=== PATIENT | male | born 1995 | race Caucasian/White ===

== ENCOUNTER 2018-05-17 09:16 | Emergency (ER) | payer MEDICAID, OTHER ==
[~2018-05-17] VITALS: Ht 172.7 cm; Wt 77.3 kg
[2018-05-17] MEDS ORDERED: fentaNYL/PF 50MCG/1 ML 2ML syringe IV ONE (09:50)
[2018-05-17] MEDS ORDERED: LIDOcaine 1% 30ml preserv. free vial IJ ONE (09:50)
[2018-05-17] MEDS ORDERED: ondansetron/PF 4mg/2ml inj IV ONE (09:50)
[2018-05-17] MEDS ORDERED: etomidate 2mg/ml inj. IV ONE (09:50)
--- NOTE | 2018-05-17 09:56 | NUR ---
EMAN BACON DE RINDER WILL BE HERE IN 30 MIN
--- NOTE | 2018-05-17 10:36 | NUR ---
xray completed during procedure
--- NOTE | 2018-05-17 10:43 | NUR ---
sugar tong splint applied by orthopedic radiologic technologist
[2018-05-17] MEDS ORDERED: HYDR-3965 PO (10:46)
[2018-05-17] MEDS ORDERED: ONDA4TAB6 PO (10:47)
[2018-05-17 11:03] VITALS: BP 136/83
[2018-05-17] MEDS ORDERED: HYDROcodone/acetaminophen 10/325mg tab PO ONE (11:40)
== END 2018-05-17 12:07 | disposition home or self-care (01) ==
LOC: ER 09:17
DX: S52.571A Other intraarticular fracture of lower end of right radius, initial encounter for closed fracture (principal); S52.611A Displaced fracture of right ulna styloid process, initial encounter for closed fracture; Z79.899 Other long term (current) drug therapy; W11.XXXA Fall on and from ladder, initial encounter; Y93.89 Activity, other specified; Y92.89 Other specified places as the place of occurrence of the external cause; Y99.8 Other external cause status
CPT/HCPCS: 25605; 73100; 73110; 99152; 99153; 99285; J2405; J3010; J3490